=== PATIENT | male | born 1970 | race Caucasian/White ===

== ENCOUNTER 2017-10-13 12:39 | Emergency (ER) | payer OTHER, BC ==
[2017-10-13] MEDS ORDERED: LIDOCAINE 5% (700 MG) TRANSDERMAL ADH..PATCH TP ONE (13:42)
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
[2017-10-13 16:00] VITALS: BP 149/80
== END 2017-10-13 15:13 | disposition home or self-care (01) ==
LOC: ER 12:39
DX: M54.5 Low back pain (principal); V89.2XXA Person injured in unspecified motor-vehicle accident, traffic, initial encounter
CPT/HCPCS: 72110; 99284